=== PATIENT | male | born 1990 ===

== ENCOUNTER 2017-05-14 19:10 | Emergency (ER) | payer SELFPAY ==
[2017-05-14 19:21] VITALS: BP 139/70; PULSE 85; RESP 16; TEMP 98; O2SAT 99
--- NOTE | 2017-05-14 21:15 | ED PDOC ---
Upper Extremity Pain/Injury Time Seen by Provider: 05/14/17 19:56 Chief Complaint (Nursing): Chest Pain Chief Complaint (Provider): Chest Pain History Per: Patient History/Exam Limitations: no limitations Onset/Duration Of Symptoms: Days (x2) Current Symptoms Are (Timing): Still Present Additional Complaint(s): 26 year old male with no significant past medical history, who presents to the ED complaining of left shoulder pain x2 days. States the shoulder pain began around 9pm last night when he went to lie down on his right side. Reports the pain is constant and worse with certain movements and radiates to his chest. Denies taking any medication for the pain, any difficulty breathing, or cough. Patient is also reporting 4 years of intermittent left lower rib pain. States the pain sometimes renders him incapable of taking a deep breath. Denies ever being evaluated for the pain. Also states he is not currently feeling that pain. Denies any direct injury. PMD: None Past Medical History Reviewed: Historical Data, Nursing Documentation, Vital Signs Vital Signs: Last Vital Signs Temp 98.0 F 05/14/17 19:18 Pulse 85 05/14/17 19:18 Resp 16 05/14/17 19:18 BP 139/70 05/14/17 19:18 Pulse Ox 99 05/14/17 19:18 - Medical History PMH: No Chronic Diseases - Surgical History Surgical History: No Surg Hx - Family History Family History: States: Unknown Family Hx - Social History Current smoker - smoking cessation education provided: No Alcohol: None Drugs: Denies - Home Medications Home Medications: Ambulatory Orders Medication Instructions Recorded Ibuprofen [Motrin Tab] 600 mg PO Q8 PRN #60 tab 05/14/17 - Allergies Allergies/Adverse Reactions: Allergies Allergy/AdvReac Type Severity Reaction Status Date / Time No Known Allergies Allergy Verified 05/14/17 19:18 Review of Systems ROS Statement: Except As Marked, All Systems Reviewed And Found Negative Cardiovascular: Positive for: Chest Pain Respiratory: Negative for: Cough, Shortness of Breath Musculoskeletal: Positive for: Shoulder Pain (left) Physical Exam - Reviewed Nursing Documentation Reviewed: Yes Vital Signs Reviewed: Yes - Physical Exam Appears: Positive for: Non-toxic, No Acute Distress Head Exam: Positive for: ATRAUMATIC, NORMOCEPHALIC Skin: Positive for: Warm, Dry Eye Exam: Positive for: EOMI, PERRL ENT: Positive for: Normal ENT Inspection Neck: Positive for: Painless ROM, Supple Cardiovascular/Chest: Positive for: Regular Rate, Rhythm, Other (reproducible tenderndess LEFT chest wall lower rib no mass no crepitus no laxity. RIGHT pectoralis tenderness with no spasm.). Negative for: Murmur Respiratory: Positive for: Normal Breath Sounds. Negative for: Rales, Rhonchi, Wheezing, Respiratory Distress Gastrointestinal/Abdominal: Positive for: Soft. Negative for: Tenderness Back: Positive for: Normal Inspection. Negative for: Decreased ROM Extremity: Positive for: Other (RIGHT shoulder: no deformity, +ttp deltoid) Lymphatic: Negative for: Adenopathy Neurologic/Psych: Positive for: Alert. Negative for: Motor/Sensory Deficits - ECG ECG: Positive for: Interpreted By Me ECG Rhythm: Positive for: Normal QRS, Normal ST Segment, Sinus Rhythm O2 Sat by Pulse Oximetry: 99 (RA) Pulse Ox Interpretation: Normal Medical Decision Making Medical Decision Making: Time: 20:21 Initial Impression: Shoulder pain and chest pain Initial Plan: --EKG --Chest X-Ray 2 views --Motrin 600 mg PO --X-Ray right shoulder --Reevaluation CXR: No infiltrate/effusion/ptx RIGHT shoulder:No fx/dislocation Scribe Attestation: Documented by Eduardo Rg, acting as a scribe for Eddie Barber MD. Provider Scribe Attestation: All medical record entries made by the Scribe were at my direction and personally dictated by me. I have reviewed the chart and agree that the record accurately reflects my personal performance of the history, physical exam, medical decision making, and the department course for this patient. I have also personally directed, reviewed, and agree with the discharge instructions and disposition. Disposition - Clinical Impression Clinical Impression: Chest wall pain, Shoulder strain - Disposition Referrals: [facility] [Outside] Disposition: Routine/Home Disposition Time: 21:28 Condition: GOOD Prescriptions: Ibuprofen [Motrin Tab] 600 mg PO Q8 PRN #60 tab PRN Reason: Pain, Moderate (4-7) Instructions: Chest Wall Pain (ED), Shoulder Sprain (ED) Forms: [facility] ED School/Work Excuse
--- NOTE | 2017-05-15 08:48 | RAD ---
HISTORY: chest pain COMPARISON: No prior. TECHNIQUE: Chest PA and lateral FINDINGS: LUNGS: No active pulmonary disease. PLEURA: No significant pleural effusion identified. No pneumothorax apparent. CARDIOVASCULAR: Normal. OSSEOUS STRUCTURES: Levoconvex curvature of the thoracolumbar spine. No significant abnormalities. VISUALIZED UPPER ABDOMEN: Normal. OTHER FINDINGS: None. IMPRESSION: No active disease.
--- NOTE | 2017-05-15 08:49 | RAD ---
PROCEDURE: Radiographs of the Right Shoulder HISTORY: RIGHT shoulder pain COMPARISON: No prior. FINDINGS: BONES: Fracture. JOINTS: Glenohumeral and acromioclavicular joints preserved. No osteoarthritis. SOFT TISSUES: Normal. OTHER FINDINGS: None. IMPRESSION: No demonstrated fracture or dislocation.
--- NOTE | 2017-05-15 09:05 | CARD ---
APPROVED REPORT EKG Measurement Heart [id number] <Conclusion> Normal sinus rhythm Normal ECG
== END 2017-05-14 21:47 | disposition home or self-care (01) ==
LOC: H.ER 19:10
DX: R07.89 Other chest pain (principal); M25.511 Pain in right shoulder